=== PATIENT | female | born 1955 | race Caucasian/White ===

== ENCOUNTER 2020-04-19 06:45 | Emergency (ER) | payer OTHER ==
[~2020-04-19] VITALS: Ht 162.6 cm; Wt 72.7 kg
[2020-04-19 07:12] VITALS: BP 140/82
[2020-04-19 07:24] LABS: BILIRUBIN,URINE NEG (NEG); CLARITY,URINE CLEAR; COLOR,URINE YELLOW; GLUCOSE,URINE NEG (NEG); NITRITE,URINE NEG (NEG); UROBILINOGEN,URINE 0.2 mg/dL (0.2 mg/dL)
--- NOTE | 2020-04-19 07:54 | PHYS DOC ---
Past History Past Medical History: No Pertinent History Past Surgical History: No Surgical History Alcohol Use: None Adult General Chief Complaint Chief Complaint: PAIN ON URINATION HPI HPI Patient is a 64-year-old female who presents with light lower quadrant pain and increased urinary frequency. Onset of symptoms was 1 day ago without known inciting event or trauma. Patient has tried different body positions but nothing known provides relief. No known specific factors exacerbate patient's condition such as physical movement or body position. Pain is dull, located to right lower quadrant, and does not radiate. Timing of symptoms has waxed and waned and patient reports episodes come and "bouts". Patient reports waking up from her sleep x2 last night feeling nauseous and having chills prompting her to seek care at our ED today. She otherwise reports being afebrile, suffering no recent febrile illness, admits x1 known COVID-19 positive contact 48 hours ago, no recent travel, is post-menopausal, is up-to-date and has had no previous abnormal Pap smears and denies any other vaginal or symptoms. Allergies Allergies Allergies Coded Allergies Type Severity Reaction Last Updated Verified No Known Drug Allergies 04/19/20 No Physical Exam Physical Exam Constitutional: Well developed, well nourished, no acute distress, non-toxic appearance. [] HENT: Normocephalic, atraumatic, bilateral external ears normal, oropharynx moist, no oral exudates, nose normal. [] Eyes: PERRLA, EOMI, conjunctiva normal, no discharge. [] Neck: Normal range of motion, no tenderness, supple, no stridor. [] Cardiovascular:Heart rate regular rhythm, no murmur [] Lungs & Thorax: Bilateral breath sounds clear to auscultation [] Abdomen: Bowel sounds normal, soft, mild tenderness to right lower quadrant, no guarding, no rebound, no masses, no pulsatile masses. Negative Healy, Rovsing, heel slap, obturator, McBurney's point signs. No peritoneal signs, nonsurgical abdomen [] Skin: Warm, dry, no erythema, no rash. [] Back: No tenderness, no CVA tenderness. [] Extremities: No tenderness, no cyanosis, no clubbing, ROM intact, no edema. [] Neurologic: Alert and oriented X 3, normal motor function, normal sensory function, no focal deficits noted. [] Psychologic: Affect normal, judgement normal, mood normal. [] Current Patient Data Vital Signs Vital Signs Date Time Temp Pulse Resp B/P (MAP) Pulse Ox O2 Delivery O2 Flow Rate FiO2 04/19/20 07:12 97.9 64 18 140/82 (101) 97 Lab Results Laboratory Tests Test 04/19/20 07:03 Urine Collection Type Unknown Urine Color Yellow Urine Clarity Clear Urine pH 5.0 Urine Specific [place] >=1.030 Urine Protein Neg (NEG-TRACE) Urine Glucose (UA) Neg mg/dL (NEG) Urine Ketones (Stick) Neg mg/dL (NEG) Urine Blood Large (NEG) Urine Nitrite Neg (NEG) Urine Bilirubin Neg (NEG) Urine Urobilinogen Dipstick 0.2 mg/dL (0.2 mg/dL) Urine Leukocyte Esterase Neg (NEG) EKG EKG [] Radiology/Procedures Radiology/Procedures PROCEDURE: RENAL COMPLETE BILATERAL Renal ultrasound complete. HISTORY: Right lower quadrant pain, hematuria Ultrasound was used to evaluate kidneys and bladder. Vena cava at the liver was unremarkable. Aorta was unremarkable. Right kidney was 11 cm in length without a mass or hydronephrosis. Bladder was unremarkable. There are jets from the ureteral orifices bilaterally with color imaging. Left kidney is 10.7 cm in length without a mass or hydronephrosis. IMPRESSION: 1. No hydronephrosis noted in the kidneys. Electronically signed by: Ronnie Petersen MD (04/19/2020 9:18 AM) [facility] DICTATED AND SIGNED BY: RONNIE PETERSEN MD DATE: 04/19/2018 Course & Med Decision Making Course & Med Decision Making History and physical exam non-concerning for emergent surgical intervention Patient asymptomatic throughout entirety of ED visit but concerned about making it through the weekend symptom-free and following up with PCP for continued outpatient work-up early next week UA negative for infection with blood present. Offered patient further laboratory work-up and imaging. Ultrasound preferred over CT scan given she is asymptomatic, hemodynamically stable, and kidney stone diagnosis most likely Findings reviewed and ED course discussed at length with patient Discussed no acute/emergent findings based on work-up today. Discussed this may be an early presentation of more acute pathology such as appendicitis etc. Close follow-up with primary care advised in upcoming 2 to 6 days. Would recommend continued outpatient work-up as indicated Strict return precautions discussed with good understanding reported by patient, all questions and concerns addressed prior to departure home Patient discharged home in stable condition with short prescription of Zofran for as needed nausea use Dragon Disclaimer Dragon Disclaimer This electronic medical record was generated, in whole or in part, using a voice recognition dictation system. Departure Departure: Impression: Primary Impression: Right lower quadrant abdominal pain of unknown etiology Disposition: HOME/RESIDENCE PRIOR TO ADM Condition: STABLE Referrals: PCP,UNKNOWN (PCP) Please call your primary care physician first thing Tuesday to set up ER follow-up appointment this upcoming week Patient Instructions: Abdominal Pain (Nonspecific), Abdominal Pain, Possible Early Appendicitis Additional Instructions: You have been evaluated in the Emergency Department today for abdominal pain. Your evaluation was not suggestive of any emergent condition requiring medical intervention at this time. However, some abdominal problems make take more time to appear. Therefore, it is important for you to watch for any new symptoms or worsening of your current condition. Please follow up with your primary care physician in upcoming 2 to 7 days. Return to the Emergency Department if you experience worsening pain, persistent fevers greater than 100.4, recurrent vomiting, blood in vomit, blood in stool, d ark tarry stool, chest pain, difficulty breathing, or any other concerning symptoms. Scripts Ondansetron Hcl (ZOFRAN) 4 Mg Tablet 1 TAB PO Q8HRS for nausea, #15 TAB Prov: TRAV DUBOIS DO 04/19/20 Justification of Admission: Justification of Admission: Justification of Admission Dx: N/A TRAV DUBOIS DO Apr 19, 2020 07:54
[2020-04-19 08:11] LABS: BASO % 0 % (0-3); EOS # 0.1 x10^3/uL (0.0-0.7); EOS % 1 % (0-3); HEMATOCRIT 41.5 % (36.0-47.0); HEMOGLOBIN 13.9 g/dL (12.0-15.5); LYMPH # 1.1 x10^3/uL (1.0-4.8); LYMPH % 10 % (24-48); MEAN CORPUSCULAR HEMOGLOBIN 31 pg (25-35); MEAN CORPUSCULAR HGB CONC 34 g/dL (31-37); MEAN CORPUSCULAR VOLUME 91 fL (79-100); MONO # 0.6 x10^3/uL (0.0-1.1); MONO % 6 % (0-9); NEUT # 9.4 x10^3uL (1.8-7.7); NEUT % 84 % (31-73); PLATELET COUNT 361 x10^3/uL (140-400); RED BLOOD COUNT 4.56 x10^6/uL (3.50-5.40); RED CELL DISTRIBUTION WIDTH 13.5 % (11.5-14.5); WHITE BLOOD COUNT 11.2 x10^3/uL (4.0-11.0)
[2020-04-19 08:20] LABS: CALCIUM 9.2 mg/dL (8.5-10.1); CREATININE 1.2 mg/dL (0.6-1.0); GFR 45.4; POTASSIUM 4.4 mmol/L (3.5-5.1)
[2020-04-19 08:26] LABS: ALBUMIN/GLOBULIN RATIO 1.1 (1.0-1.7); TOTAL BILIRUBIN 0.3 mg/dL (0.2-1.0); TOTAL PROTEIN 7.8 g/dL (6.4-8.2)
--- NOTE | 2020-04-19 09:20 | RAD ---
Renal ultrasound complete. HISTORY: Right lower quadrant pain, hematuria Ultrasound was used to evaluate kidneys and bladder. Vena cava at the liver was unremarkable. Aorta was unremarkable. Right kidney was 11 cm in length without a mass or hydronephrosis. Bladder was unremarkable. There are jets from the ureteral orifices bilaterally with color imaging. Left kidney is 10.7 cm in length without a mass or hydronephrosis. IMPRESSION: 1. No hydronephrosis noted in the kidneys. Electronically signed by: Shay Vega MD (04/19/2020 9:18 AM) [facility]
[2020-04-19] MEDS ORDERED: ONDA4TAB7 PO (09:32)
== END 2020-04-19 09:57 | disposition home or self-care (01) ==
LOC: ER 06:45
DX: R10.31 Right lower quadrant pain (principal); R11.0 Nausea; R50.9 Fever, unspecified
CPT/HCPCS: 36415; 76770; 80053; 81003; 85025; 99284